=== PATIENT | female | born 2000 | race Two or more races ===

== ENCOUNTER 2021-04-26 21:10 | Emergency (ER) | payer SELFPAY ==
[~2021-04-26] VITALS: Ht 149.9 cm; Wt 45.4 kg
[2021-04-26 21:10] VITALS: BP 124/87
[2021-04-26 22:06] LABS: Urine Bacteria NONE SEEN /hpf (None Seen); Urine Blood 3+ /uL (Negative); Urine WBC 850 /hpf (0 - 5); Urine WBC Clumps PRESENT /hpf (None Seen)
[2021-04-26 22:07] LABS: Urine Specific Gravity 1.033 (1.001-1.035)
== END 2021-04-26 23:35 | disposition left against medical advice (07) ==
LOC: ER 21:10
DX: R10.30 Lower abdominal pain, unspecified (principal); K92.1 Melena; Z53.21 Procedure and treatment not carried out due to patient leaving prior to being seen by health care provider
CPT/HCPCS: 74176; 81001; 81025

== ENCOUNTER → 2023-04-22 | Emergency (ER) | payer MEDICAID, OTHER ==
[~2023-04-22] VITALS: Ht 149.9 cm; Wt 43.6 kg
[2023-04-22 21:06] VITALS: BP 115/86
[2023-04-22 21:22] LABS: Urine Bacteria NONE SEEN /hpf (None Seen); Urine Blood 3+ /uL (Negative); Urine Mucus FEW (None Seen); Urine WBC 54 /hpf (0 - 5)
[2023-04-22 21:23] LABS: Basophils # (auto) 0.1 10 ^3/uL (0-0.2); Basophils % (auto) 0.9 % (0.0-2.0); Eosinophils # (auto) 0.1 10 ^3/uL (0-0.8); Hematocrit 38.3 % (36.0-46.0); Hemoglobin 12.4 g/dL (12.2-16.2); Lymphocytes # (auto) 2.2 10 ^3/uL (0.4-5.4); Mean Corpuscular Hemoglobin 27.3 pg (28.0-32.0); Mean Corpuscular Hgb Conc. 32.4 g/dL (32.0-36.0); Mean Corpuscular Volume 84.5 fL (80.0-100.0); Monocytes # (auto) 0.8 10 ^3/uL (0-1.3); Monocytes % (auto) 9.6 % (0.0-12.0); Neutrophils # (auto) 5.3 10 ^3/uL (1.6-8.6); Neutrophils % (auto) 62.5 % (37.0-80.0); Red Blood Cells 4.53 10^6/uL (4.0-5.20); Red Cell Distribution Width 13.9 % (11.8-14.3); White Blood Cell 8.4 10^3/uL (4.4-10.8)
[2023-04-22 21:43] LABS: Calcium 8.5 mg/dL (8.5-10.1); Potassium 3.4 mmol/L (3.5-5.1)
[2023-04-22 21:46] LABS: BUN/Creatinine Ratio 13.2 (10.0-20.0); Bilirubin, Total 0.3 mg/dL (0.2-1.0); Total Protein 7.3 g/dL (6.4-8.2)
== END | disposition home or self-care (01) ==
LOC: ER 20:47
DX: O02.1 Missed abortion (principal)
CPT/HCPCS: 36415; 76801; 76817; 80053; 81001; 84702; 85025

== ENCOUNTER 2024-10-10 16:37 | Emergency (ER) | payer MEDICAID ==
[~2024-10-10] VITALS: Ht 149.9 cm; Wt 52.5 kg
[2024-10-10 16:44] VITALS: BP 120/80; PULSE 102; RESP 18; O2SAT 100
--- NOTE | 2024-10-10 16:49 | ED.PDOC ---
HPI Comments HPI: Poor Historian. 24-year-old female 27 weeks gestation one miscarriage presents to emergency department for evaluation of 2 hour history of left-sided chest discomfort nonradiating intermittent without any particular alleviating or precipitating factors. She has some associated mild shortness of breath with it. She said she had these symptoms numerous times in the past and has been evaluated by Cardiology two years ago and had an echocardiogram which showed mild leaky valve patient has no symptoms or complaints regarding her today. No vaginal bleeding or abdominal pain. Vitals: BP: 120/80 HR: 103 Temp: 97.8 F RR: 18 SPO2: 100% RA Past Medical History: Mild leaky valve Past Surgical History: Denies Denies any use of drugs or tobacco or alcohol. REVIEW OF SYSTEMS: CONSTITUTIONAL: Denies acute: fever, diaphoresis, chills, generalized weakness. HEAD: Denies acute: headache, photophobia Eyes: Denies acute: Double vision, vision loss, eye pain, eye discharge. EARS: Denies acute: tinnitus, hearing loss, ear discharge, ear pain, THROAT: Denies acute: sore throat, swelling, difficulty swallowing , pain with swallowing, change in voice. NECK: Denies acute: neck pain, neck swelling, stiff neck. HEART: Denies acute : palpitations, LUNGS: Denies acute: wheezing, cough, hemoptysis ABDOMEN: Denies acute: abdominal pain, Nausea, Vomiting, diarrhea, melena , hematemesis, hematochezia SKIN: Denies acute: rash, redness, lesions, itchiness. EXTREMITIES: Denies acute: calf pain, numbness, tingling, weakness, denies pain in extremity. Denies acute: Low back pain. Neuro: Denies acute: focal neurological deficit, motor or sensory focal neurological deficit, tremors, seizure like activity, confusion, dizziness, change in mental status, loss of bowel or bladder function, cauda equina like symptoms. : Denies acute: dysuria, hematuria, flank pain, increase in urinary frequency. PSYCH: Denies acute: hallucination, suicidal ideation, homicidal ideation. FEMALE: Denies acute: abnormal vaginal bleeding, foul odor, unusual discharge. PHYSICAL EXAM: General: no acute distress, awake and alert. Head: normocephalic, atraumatic. Neck: supple, trachea is midline, no swelling. Throat: Normal phonation. Eyes:, no erythema, no purulent discharge, no proptosis, no icterus. Heart: regular rate, regular rhythm, no significant murmur appreciated. Lungs: no apparent respiratory distress, Able to speak in full sentences. No wheezing, no rhonchi, no crackles. No stridors Clear to auscultation bilaterally. Abdomen: non tender to palpation, non distended, soft, no guarding, no rebound, + bowel sounds. Neuro: Awake, Alert, oriented to name, self, situation, follows commands GCS=15. Speech is normal. Skin: no petechia, no purpura, no cyanosis, non-pale, not jaundice. Lower extremities: --no - Pitting edema no deformity, no focal swelling, no calf TTP. Makes eye contact. moves all four extremities. Face: no apparent facial droop. Ambulating in the ED independently. 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 Was a procedure done?: No CP Differential Dx Differential Diagnosis: N/A Differential Diagnosis: Angina, Chest Wall Pain, Cholelithiasis, Costochondritis, Esophageal reflux/spasm, Myocardial Infarction, Pericarditis, Pneumonia, Pulmonary Embolus X-Ray, Labs, Meds, VS Vital Signs Date Time Temp Pulse Resp B/P (MAP) Pulse Ox O2 Delivery O2 Flow Rate FiO2 10/10/24 16:44 102 10/10/24 16:44 97.8 103 18 120/80 (93) 100 Lab Test 10/10/24 18:16 10/10/24 16:45 Range/Units Troponin I High Sensitivity Pending < 3 L </=34 ng/L White Blood Count 9.5 4.4-10.8 10^3/uL Red Blood Count 4.00 4.0-5.20 10^6/uL Hemoglobin 11.5 L 12.2-16.2 g/dL Hematocrit 34.9 L 36.0-46.0 % Mean Corpuscular Volume 87.1 80.0-100.0 fL Mean Corpuscular Hemoglobin 28.8 28.0-32.0 pg Mean Corpuscular Hemoglobin Concent 33.1 32.0-36.0 g/dL Red Cell Distribution Width 13.9 11.8-14.3 % Platelet Count 158 140-450 10^3/uL Mean Platelet Volume 9.8 6.9-10.8 fL Neutrophils (%) (Auto) 74.8 37.0-80.0 % Lymphocytes (%) (Auto) 16.6 10.0-50.0 % Monocytes (%) (Auto) 7.9 0.0-12.0 % Eosinophils (%) (Auto) 0.4 0.0-7.0 % Basophils (%) (Auto) 0.3 0.0-2.0 % Neutrophils # (Auto) 7.1 1.6-8.6 10 ^3/uL Lymphocytes # (Auto) 1.6 0.4-5.4 10 ^3/uL Monocytes # (Auto) 0.8 0-1.3 10 ^3/uL Eosinophils # (Auto) 0 0-0.8 10 ^3/uL Basophils # (Auto) 0 0-0.2 10 ^3/uL Nucleated Red Blood Cells 0.0 % Sodium Level 138 136-145 mmol/L Potassium Level 3.7 3.5-5.1 mmol/L Chloride Level 105 98-107 mmol/L Carbon Dioxide Level 24 20-31 mmol/L Anion Gap 9 5-15 Blood Urea Nitrogen 7 L 9-23 mg/dL Creatinine 0.65 0.550-1.02 mg/dL Glomerular Filtration Rate Calc 124 >90 mL/min BUN/Creatinine Ratio 10.8 10.0-20.0 Serum Glucose 83 74-106 mg/dL Calcium Level 9.8 8.7-10.4 mg/dL Magnesium Level 1.7 1.6-2.6 mg/dL Total Bilirubin 0.2 0.2-1.0 mg/dL Aspartate Amino Transferase (AST) 22 13-40 U/L Alanine Aminotransferase (ALT) 13 7-40 U/L Alkaline Phosphatase 82 46-116 U/L B-Type Natriuretic Peptide 18.89 0-100 pg/mL Total Protein 6.3 5.7-8.2 g/dL Albumin 3.9 3.2-4.8 g/dL Time of 1ST Reevaluation: 19:04 Reevaluation 1ST: Unchanged Patient Education/Counseling: Diagnosis, Treatment Family Education/Counseling: No Family Present Departure 1 Departure Time of Disposition: 19:01 Impression: Primary Impression: Chest pain Additional Impressions: Dyspnea Left against medical advice Disposition: 07 LEFT AGAINST MEDICAL ADVICE Condition: Stable Additional Instructions: You are leaving against medical advice. Please seek medical attention JUAN. Follow up with Cardiology JUAN. Discharged With: Self Critical Care Note Critical Care Time?: No Heart Score Heart Score: Heart Score Response (Comments) Value Age <45 0 Risk Factors 1 or 2 risk factors 1 Total 1 I personally scribed for MAGDALENA WING DO ([email or web address]) on 10/10/24 at 19:08. Electronically submitted by Maren Howell ([facility]). MAGDALENA WING DO Oct 10, 2024 16:49
[2024-10-10 17:07] LABS: Basophils # (auto) 0 10 ^3/uL (0-0.2); Basophils % (auto) 0.3 % (0.0-2.0); Eosinophils # (auto) 0 10 ^3/uL (0-0.8); Eosinophils % (auto) 0.4 % (0.0-7.0); Hematocrit 34.9 % (36.0-46.0); Hemoglobin 11.5 g/dL (12.2-16.2); Lymphocytes # (auto) 1.6 10 ^3/uL (0.4-5.4); Lymphocytes % (auto) 16.6 % (10.0-50.0); Mean Corpuscular Hemoglobin 28.8 pg (28.0-32.0); Mean Corpuscular Hgb Conc. 33.1 g/dL (32.0-36.0); Mean Corpuscular Volume 87.1 fL (80.0-100.0); Monocytes # (auto) 0.8 10 ^3/uL (0-1.3); Monocytes % (auto) 7.9 % (0.0-12.0); Neutrophils # (auto) 7.1 10 ^3/uL (1.6-8.6); Neutrophils % (auto) 74.8 % (37.0-80.0); Platelet Count (auto) 158 10^3/uL (140-450); Red Cell Distribution Width 13.9 % (11.8-14.3); White Blood Cell 9.5 10^3/uL (4.4-10.8)
[2024-10-10 17:31] LABS: Alanine Aminotransferase 13 U/L (7-40); Albumin 3.9 g/dL (3.2-4.8); Alkaline Phosphatase 82 U/L (46-116); Anion Gap 9 (5-15); Aspartate Aminotransferase 22 U/L (13-40); BUN/Creatinine Ratio 10.8 (10.0-20.0); Bilirubin, Total 0.2 mg/dL (0.2-1.0); Blood Urea Nitrogen 7 mg/dL (9-23); Calcium 9.8 mg/dL (8.7-10.4); Carbon Dioxide 24 mmol/L (20-31); Chloride 105 mmol/L (98-107); Glucose 83 mg/dL (74-106); Potassium 3.7 mmol/L (3.5-5.1); Sodium 138 mmol/L (136-145); Total Protein 6.3 g/dL (5.7-8.2)
--- NOTE | 2024-10-11 10:46 | ECG ---
[facility] Test Date: 2024-10-10 Test Time: 16:44:14 Pat Name: OPAL POWELL Department: ER Room: Gender: F Manager Philosophy: CARMEN : 2000 Requested By: MAGDALENA WING Order Number: [id number] Reading MD: Measurements Intervals [place] Rate: 102 P: 83 AL: 123 QRS: 84 QRSD: 73 T: -1 QT: 320 QTc: 417 Interpretive Statements Sinus tachycardia Borderline T wave abnormalities Please click the below link to view image of tracing.
== END 2024-10-10 19:02 | disposition left against medical advice (07) ==
LOC: ER 16:37
DX: O26.892 Other specified pregnancy related conditions, second trimester (principal); R07.89 Other chest pain; R06.02 Shortness of breath; R06.00 Dyspnea, unspecified; Z3A.27 27 weeks gestation of pregnancy; Z79.899 Other long term (current) drug therapy
CPT/HCPCS: 36415; 80053; 83735; 83880; 84484; 85025; 93005

== ENCOUNTER 2024-10-21 18:00 | Observation (INO) | payer MEDICAID ==
[~2024-10-21] VITALS: Ht 149.9 cm; Wt 52.2 kg
--- NOTE | 2024-10-21 20:05 | DVH ---
OB ULTRASOUND, LIMITED CLINICAL INDICATION: Swelling/Contractions TECHNIQUE: Multiple grayscale ultrasound and M-mode images were obtained of the pelvis for evaluation of intrauterine . COMPARISON: None FINDINGS /impression: Cephalic presentation placenta location is anterior heart rate 136 beats per minute current INDIA 14.26 cm. Cervical length 3.24 cm. movement is seen
[2024-10-21 20:08] LABS: Basophils # (auto) 0 10 ^3/uL (0-0.2); Basophils % (auto) 0.3 % (0.0-2.0); Eosinophils # (auto) 0 10 ^3/uL (0-0.8); Eosinophils % (auto) 0.5 % (0.0-7.0); Hematocrit 35.2 % (36.0-46.0); Hemoglobin 11.5 g/dL (12.2-16.2); Lymphocytes # (auto) 1.6 10 ^3/uL (0.4-5.4); Lymphocytes % (auto) 16.7 % (10.0-50.0); Mean Corpuscular Hemoglobin 28.5 pg (28.0-32.0); Mean Corpuscular Hgb Conc. 32.8 g/dL (32.0-36.0); Mean Corpuscular Volume 87.1 fL (80.0-100.0); Monocytes # (auto) 0.7 10 ^3/uL (0-1.3); Monocytes % (auto) 7.1 % (0.0-12.0); Neutrophils % (auto) 75.4 % (37.0-80.0); Platelet Count (auto) 136 10^3/uL (140-450); Red Blood Cells 4.04 10^6/uL (4.0-5.20); Red Cell Distribution Width 13.7 % (11.8-14.3); White Blood Cell 9.3 10^3/uL (4.4-10.8)
[2024-10-21] MEDS: TERBUTALINE SULFATE 1 MG/ML 1ML VIAL SC SCH (20:08)
[2024-10-21 20:27] LABS: INR 0.92 (0.9-1.15); Partial Thromboplastin Time 25.9 SEC (24.5-34.5); Prothrombin Time 9.8 sec (9.3-11.8)
[2024-10-21 20:28] LABS: Alanine Aminotransferase 15 U/L (7-40); Alkaline Phosphatase 89 U/L (46-116); Anion Gap 7 (5-15); Aspartate Aminotransferase 17 U/L (13-40); Calcium 9.9 mg/dL (8.7-10.4); Carbon Dioxide 24 mmol/L (20-31); Chloride 106 mmol/L (98-107); Glucose 104 mg/dL (74-106); Potassium 3.7 mmol/L (3.5-5.1); Sodium 137 mmol/L (136-145); Total Protein 6.7 g/dL (5.7-8.2); Uric Acid 3.6 mg/dL (3.1-7.8)
[2024-10-21 21:01] LABS: BUN/Creatinine Ratio 8.5 (10.0-20.0); Bilirubin, Total 0.3 mg/dL (0.2-1.0); Blood Urea Nitrogen < 5 mg/dL (9-23)
[2024-10-21 22:39] LABS: Protein, Urine 7.1 mg/dL (1-14)
[2024-10-21 22:42] LABS: Creatinine, Urine 49.67 mg/dL (30.0-125.0); Urine Protein/Creatinine Ratio 0.14
[2024-10-22] MEDS ORDERED: ASPI1TAB20 PO (02:16)
[2024-10-22] MEDS ORDERED: NIFE10CA52 PO (02:16)
--- NOTE | 2024-10-22 03:35 | DVHDS2 ---
Physician Discharge Progress N Final Diagnosis: PTL Secondary Diagnosis: ruled out for preeclampsia Problems List: (1) labor in third trimester Operations or Procedures: Operations or Procedures S: 24yo IUP@28.1wks presents to OB triage with c/o swelling in her both her feet and tightening in her lower abdomen. She reports being in [facility] ED last week for RUQ pain. Denies UCs/LOF/VB/MOYA/vision changes/RUQ pain. Endorses +FM. Pt reports hx of preeclampsia with previous . Not taking baby aspirin this . PNC with Dr. Kauffman, uncomplicated thus far. O: VSS, normotensive BLE: No edema, 2+ DTRs NST reactive TOCO: regular UCs initially, 1 dose of SQ terbutaline given then no UCs noted Laboratory Tests Test 10/21/24 19:38 10/21/24 21:24 Range/Units White Blood Count 9.3 4.4-10.8 10^3/uL Red Blood Count 4.04 4.0-5.20 10^6/uL Hemoglobin 11.5 L 12.2-16.2 g/dL Hematocrit 35.2 L 36.0-46.0 % Mean Corpuscular Volume 87.1 80.0-100.0 fL Mean Corpuscular Hemoglobin 28.5 28.0-32.0 pg Mean Corpuscular Hemoglobin Concent 32.8 32.0-36.0 g/dL Red Cell Distribution Width 13.7 11.8-14.3 % Platelet Count 136 L 140-450 10^3/uL Mean Platelet Volume 10.6 6.9-10.8 fL Neutrophils (%) (Auto) 75.4 37.0-80.0 % Lymphocytes (%) (Auto) 16.7 10.0-50.0 % Monocytes (%) (Auto) 7.1 0.0-12.0 % Eosinophils (%) (Auto) 0.5 0.0-7.0 % Basophils (%) (Auto) 0.3 0.0-2.0 % Neutrophils # (Auto) 7.0 1.6-8.6 10 ^3/uL Lymphocytes # (Auto) 1.6 0.4-5.4 10 ^3/uL Monocytes # (Auto) 0.7 0-1.3 10 ^3/uL Eosinophils # (Auto) 0 0-0.8 10 ^3/uL Basophils # (Auto) 0 0-0.2 10 ^3/uL Nucleated Red Blood Cells 0.0 % Prothrombin Time 9.8 9.3-11.8 sec Prothrombin Time INR 0.92 0.9-1.15 Activated Partial Thromboplast Time 25.9 24.5-34.5 SEC Sodium Level 137 136-145 mmol/L Potassium Level 3.7 3.5-5.1 mmol/L Chloride Level 106 98-107 mmol/L Carbon Dioxide Level 24 20-31 mmol/L Anion Gap 7 5-15 Blood Urea Nitrogen < 5 L 9-23 mg/dL Creatinine 0.59 0.550-1.02 mg/dL Glomerular Filtration Rate Calc 127 >90 mL/min BUN/Creatinine Ratio 8.5 L 10.0-20.0 Serum Glucose 104 74-106 mg/dL Uric Acid 3.6 3.1-7.8 mg/dL Calcium Level 9.9 8.7-10.4 mg/dL Total Bilirubin 0.3 0.2-1.0 mg/dL Aspartate Amino Transferase (AST) 17 13-40 U/L Alanine Aminotransferase (ALT) 15 7-40 U/L Alkaline Phosphatase 89 46-116 U/L Total Protein 6.7 5.7-8.2 g/dL Albumin 4.0 3.2-4.8 g/dL Urine Creatinine 49.67 30.0-125.0 mg/dL Urine Protein/Creatinine Ratio 0.14 Urine Total Protein 7.1 1-14 mg/dL A; 24yo IUP@28.1wks PTL Ruled out for preeclampsia P: D/C home Rx sent for baby aspirin. Dr. Perez consulted, agrees with POC. Ordered pt to start taking procardia 10mg q6hrs at home, Rx sent. kick counts and Preeclampsia warning signs reviewed. PTL precautions given and when to return to the hospital. Other Interventions Other Interventions [address] [address] Ph: [phone] DIAGNOSTIC IMAGING Diagnostic Imaging Report : [id number] Signed PATIENT: OPAL POWELL ACCT: [id number] UNIT: [id number] : 2000 LOC: [facility] ROOM / BED: TRIAGE2 / A AGE / SEX: 24 / F ADM STATUS: ADM IN SERVICE 15 ORDERING PHYSICIAN: NEELAM ROWE CNM PROCEDURE(s): OBLTD - OBSTERICAL LIMITED REASON: Swelling/Contractions ORDER NUMBER(s): [id number], ACCESSION NUMBER(s): [id number] OB ULTRASOUND, LIMITED CLINICAL INDICATION: Swelling/Contractions TECHNIQUE: Multiple grayscale ultrasound and M-mode images were obtained of the pelvis for evaluation of intrauterine . COMPARISON: None FINDINGS /impression: Cephalic presentation placenta location is anterior heart rate 136 beats per minute current INDIA 14.26 cm. Cervical length 3.24 cm. movement is seen ATED BY: DALILA LAWRENCE MD DICTATED DATE/TIME: 10/21/242001 SIGNED BY: DALILA LAWRENCE MD SIGNED DATE/TIME: 10/21/242001 CC: Condition on Discharge: Stable Disposition: Home Discharge Instructions: Diet: Regular Activity: Light activity Activity comment: pelvic rest Follow Up/Referral: PLease keep all follow up appointments with your OBGYN. [facility] Medications: see med list Follow Up Care: Specialist: f/u in 1 wk Discharge Statement: "Patient was advised to return to the ER or call 911 if any headaches, dizziness, shortness of breath, chest pain, abdominal pain, bleeding, fevers, or worsening of medical condition. Patient was counseled about treatment plan, medications, possible side effects, patientverbalized understanding. All questions were answered to the best of my ability. This discharge took greater then 30 minutes in planning, reviewing documentation, counseling the patient, and discussing with other team members." NEELAM ROWE CNM Oct 22, 2024 03:35
== END 2024-10-21 23:22 | disposition home or self-care (01) ==
LOC: LDRP 18:00
PROVIDERS: ADMIT Obstetrics & Gynecology; ATTEND Obstetrics & Gynecology
DX: O60.03 Preterm labor without delivery, third trimester (principal); O26.893 Other specified pregnancy related conditions, third trimester; R51.9 Headache, unspecified; Z3A.29 29 weeks gestation of pregnancy; Z79.899 Other long term (current) drug therapy; Z98.890 Other specified postprocedural states
CPT/HCPCS: 36415; 59025; 76815; 80053; 81002; 82570; 84156; 84550; 85025; 85610; 85730; 94760; 96372; G0378; J3105

== ENCOUNTER 2024-10-25 22:40 | Observation (INO) | payer MEDICAID ==
[~2024-10-25 22:40] MED LIST: ASPI1TAB20 PO; NIFE10CA52 PO
--- NOTE | 2024-10-26 07:12 | DVHDS2 ---
Physician Discharge Progress N Final Diagnosis: UTI,ABD PAIN Operations or Procedures: Operations or Procedures NST,SONO Condition on Discharge: Good Disposition: Home Discharge Instructions: Diet: Regular Activity: Light activity Follow Up/Referral: Keep all upcoming appointments Medications: Continue taking prescribed medications as directed Follow Up Care: Specialist: 1W Discharge Statement: "Patient was advised to return to the ER or call 911 if any headaches, dizziness, shortness of breath, chest pain, abdominal pain, bleeding, fevers, or worsening of medical condition. Patient was counseled about treatment plan, medications, possible side effects, patientverbalized understanding. All questions were answered to the best of my ability. This discharge took greater then 30 minutes in planning, reviewing documentation, counseling the patient, and discussing with other team members." ELISHA BOBO DO Oct 26, 2024 07:12
== END 2024-10-26 00:29 | disposition home or self-care (01) ==
LOC: LDRP 22:40
PROVIDERS: ADMIT Obstetrics & Gynecology; ATTEND Obstetrics & Gynecology
DX: O23.42 Unspecified infection of urinary tract in pregnancy, second trimester (principal); N39.0 Urinary tract infection, site not specified; O62.9 Abnormality of forces of labor, unspecified; O26.892 Other specified pregnancy related conditions, second trimester; R30.9 Painful micturition, unspecified; Z3A.28 28 weeks gestation of pregnancy
CPT/HCPCS: 59025; 81002; 94760; G0378

== ENCOUNTER 2024-10-28 19:41 | Observation (INO) | payer MEDICAID ==
[2024-10-28] MEDS ORDERED: NITR-52 PO (21:16)
--- NOTE | 2024-10-29 00:01 | DVHDS2 ---
Physician Discharge Progress N Final Diagnosis: testing for PTL Operations or Procedures: Operations or Procedures 24yo IUP@29.1wks, +FM, denies UCs/LOF/VB/UCs/MOYA/vision changes/RUQ pain. Taking PNV, baby aspirin, procardia for PTL and antibiotics for UTI. VSS, normotensive (Pt was ruled out for preeclampsia on 10/21/24) UA wnl NST reactive (verified by 2 RNs) OB sono WNL CVL 3.46cm kick counts and Preeclampsia warning signs reviewed. PTL precautions given and when to return to the hospital. Dr. Perez consulted, agrees with POC. Condition on Discharge: Stable Disposition: Home Discharge Instructions: Diet: Regular Activity: Light activity Follow Up/Referral: [facility] Medications: Continue taking all prescribed medications Follow Up Care: Specialist: f/u 1 wk Discharge Statement: "Patient was advised to return to the ER or call 911 if any headaches, dizziness, shortness of breath, chest pain, abdominal pain, bleeding, fevers, or worsening of medical condition. Patient was counseled about treatment plan, medications, possible side effects, patientverbalized understanding. All questions were answered to the best of my ability. This discharge took greater then 30 minutes in planning, reviewing documentation, counseling the patient, and discussing with other team members." NEELAM ROWE CNM Oct 29, 2024 00:01
--- NOTE | 2024-10-29 05:52 | DVH ---
LIMITED OB ULTRASOUND > 14 WKS: HISTORY: LABOR TECHNIQUE: Multiple real-time grayscale images of the gravid uterus with duplex Doppler color flow an d M-mode spectral analysis. TRANSDUCER: Transabdominal COMPARISON: US OBSTERICAL LIMITED on DOS: 10/21/24 FINDINGS/IMPRESSION: heart rate 171 beats per minute INDIA 17.9 cm Cervix closed and measures 3.5 cm Cephalic Presentation AnteriorPlacenta without previa or abruption.
== END 2024-10-28 21:35 | disposition home or self-care (01) ==
LOC: LDRP 19:41
PROVIDERS: ADMIT Obstetrics & Gynecology; ATTEND Obstetrics & Gynecology
DX: O60.03 Preterm labor without delivery, third trimester (principal); Z3A.29 29 weeks gestation of pregnancy; Z79.899 Other long term (current) drug therapy
CPT/HCPCS: 59025; 81002; 94760; G0378; 76815

== ENCOUNTER 2024-11-05 11:01 | Observation (INO) | payer MEDICAID ==
[~2024-11-05 11:01] MED LIST changes: +NITR-52 PO
--- NOTE | 2024-11-05 11:50 | DVH ---
LIMITED OB ULTRASOUND > 14 WKS: HISTORY: labor TECHNIQUE: Multiple real-time grayscale images of the gravid uterus with duplex Doppler color flow an d M-mode spectral analysis. COMPARISON: US OBSTERICAL LIMITED on DOS: 10/28/24, US OBSTERICAL LIMITED on DOS: 10/21/24 FINDINGS: heart rate measures 154 beats per minute. Cephalic position. Placenta is anterior with no evid ence for previa or abruption at this time. Amniotic fluid index is 14.5. Cervix appears closed. Cervi erik length measures 3.4 cm. IMPRESSION: Single living intrauterine as described above.
--- NOTE | 2024-11-05 12:31 | DVHDS2 ---
Physician Discharge Progress N Final Diagnosis: Threatened labor IUP 30+ wk Secondary Diagnosis: Encounter for surveillance Operations or Procedures: Operations or Procedures NST OB ultrasound with cervial length and INDIA (all WNL) Commentary: Commentary No contractions Cervix closed on US with NORMAL cervical length, not in labor Condition on Discharge: Stable Disposition: Home Discharge Instructions: Diet: Regular Activity: No Restrictions, As Tolerated Follow Up/Referral: as scheduled. Medications: N/A Follow Up Care: Discharge Statement: "Patient was advised to return to the ER or call 911 if any headaches, dizziness, shortness of breath, chest pain, abdominal pain, bleeding, fevers, or worsening of medical condition. Patient was counseled about treatment plan, medications, possible side effects, patientverbalized understanding. All questions were answered to the best of my ability. This discharge took greater then 30 minutes in planning, reviewing documentation, counseling the patient, and discussing with other team members." SENAIT BRAUN DO Nov 05, 2024 12:31
== END 2024-11-05 12:26 | disposition home or self-care (01) ==
LOC: LDRP 11:01
PROVIDERS: ADMIT Obstetrics & Gynecology; ATTEND Obstetrics & Gynecology
DX: O47.03 False labor before 37 completed weeks of gestation, third trimester (principal); Z3A.30 30 weeks gestation of pregnancy; Z79.899 Other long term (current) drug therapy; Z98.890 Other specified postprocedural states
CPT/HCPCS: 59025; 76815; 81002; 94760; G0378

== ENCOUNTER 2024-12-13 09:40 | Observation (INO) | payer MEDICAID ==
[~2024-12-13] VITALS: Ht 149.9 cm; Wt 54.4 kg
[2024-12-13 10:40] LABS: Vaginal Trichomonas Not Present
[2024-12-13 10:40] LABS: Fern Testing Positive
[2024-12-13 10:41] LABS: Vaginal Bacteria Moderate; Vaginal Clue Cells None Seen; Vaginal Epithelial Cells Moderate
--- NOTE | 2024-12-13 10:54 | DVH ---
BIOPHYSICAL PROFILE HISTORY: Leaking Fluid TECHNIQUE: Multiple transabdominal real-time grayscale sonographic images through the gravid uterus of the fetus with duplex Doppler color flow and M-mode spectral analysis FINDINGS: BIOPHYSICAL PROFILE: breathing score: 2 movement score: 2 tone score: 2 Quantitative INDIA score: 2 (INDIA: 13 Cm.) Total score: 8 The cervix is closed measuring 4 cm Single live fetus in cephalic presentation. heart rate 134 beats per minute. Grade II placenta without previa or abruption IMPRESSION: Biophysical profile score: 8/8
--- NOTE | 2024-12-13 12:37 | DVHDS2 ---
Physician Discharge Progress N Final Diagnosis: SROM at 35.3wks Operations or Procedures: Operations or Procedures S: 24yo IUP@35.5wks presents to OB triage with c/o LOF at 1900 on 12/12/24. clear fluid. Denies VB/MOYA/vision changes/RUQ pain. Endorses +FM. PNC with Dr. Kauffman, uncomplicated. O: VSS, afebrile EFM: FHR 140s, moderate variability, +accels, -decels (last 27 minutes) TOCO: irregular UCs SSE by RN: positive nitrazine and pooling SVE by RN: 1/thick/-2, vertex Laboratory Tests Test 12/13/24 09:52 12/13/24 10:26 Range/Units Vaginal WBC (Wet Prep) Few Vaginal RBC (Wet Prep) Rare Vaginal Epithelial Cells (Wet Prep) Moderate Vaginal Bacteria (Wet Prep) Moderate Vaginal Trichomonas (Wet Prep) Not present Vaginal Yeast (Wet Prep) None seen Vaginal Clue Cells (Wet Prep) None seen Amniotic Fluid Ferning Test Positive A: 24yo IUP@35.5wks NST reactive SROM, clear fluid P: Admit to L&D for SROM OB complete ordered Pt left AMA because she wants to deliver at [facility] since they have NICU and [facility] does not. Dr. Perez made aware. Other Interventions Other Interventions [place] [address] Ph: [phone] DIAGNOSTIC IMAGING Diagnostic Imaging Report : [id number] Signed PATIENT: OPAL POWELL ACCT: [id number] UNIT: [id number] : 2000 LOC: [facility] ROOM / BED: [facility] / AGE / SEX: 24 / F ADM STATUS: ADM IN SERVICE 0952 ORDERING PHYSICIAN: NEELAM ROWE CNM PROCEDURE(s): BPP - BIOPHYSICAL PROFILE REASON: Leaking Fluid ORDER NUMBER(s): [id number], ACCESSION NUMBER(s): [id number] BIOPHYSICAL PROFILE HISTORY: Leaking Fluid TECHNIQUE: Multiple transabdominal real-time grayscale sonographic images through the gravid uterus of the fetus with duplex Doppler color flow and M-mode spectral analysis FINDINGS: BIOPHYSICAL PROFILE: breathing score: 2 movement score: 2 tone score: 2 Quantitative INDIA score: 2 (INDIA: 13 Cm.) Total score: 8 The cervix is closed measuring 4 cm Single live fetus in cephalic presentation. heart rate 134 beats per minute. Grade II placenta without previa or abruption IMPRESSION: Biophysical profile score: 8/8 ATED BY: RENE ERICKSON MD DICTATED DATE/TIME: 12/13/24 105 SIGNED BY: RENE ERICKSON MD SIGNED DATE/TIME: 12/13/24 105 CC: Condition on Discharge: Higher Level of Care Disposition: AMA Discharge Instructions: Diet: Regular Activity: No Restrictions, As Tolerated Medications: see med list Follow Up Care: Specialist: Pt left AMA because she wants to deliver at [facility] since they have NICU and [facility] does not. Discharge Statement: "Patient was advised to return to the ER or call 911 if any headaches, dizziness, shortness of breath, chest pain, abdominal pain, bleeding, fevers, or worsening of medical condition. Patient was counseled about treatment plan, medications, possible side effects, patientverbalized understanding. All questions were answered to the best of my ability. This discharge took greater then 30 minutes in planning, reviewing documentation, counseling the patient, and discussing with other team members." Visit Coding OBGYN Date of Service: Dec 13, 2024 Billing Provider: NEELAM ROWE CNM APPLICATIONS PROGRAMMER Common Visit Codes: 05751-MSH/OBS SAME DATE (HIGH) APPLICATIONS PROGRAMMER Procedure Codes: 93425-60- NON-STRESS TEST NEELAM ROWE CNM Dec 13, 2024 12:37
== END 2024-12-13 11:34 | disposition home or self-care (01) ==
LOC: LDRP 09:40
PROVIDERS: ADMIT Obstetrics & Gynecology; ATTEND Obstetrics & Gynecology
DX: O42.913 Preterm premature rupture of membranes, unspecified as to length of time between rupture and onset of labor, third trimester (principal); Z98.890 Other specified postprocedural states; Z79.899 Other long term (current) drug therapy; Z3A.35 35 weeks gestation of pregnancy
CPT/HCPCS: 76818; 87210; G0378; Q0114; 59025; 81002; 94762

== ENCOUNTER 2024-12-13 17:55 | Observation (INO) | payer MEDICAID ==
--- NOTE | 2024-12-13 19:12 | DVH ---
LIMITED OB ULTRASOUND > 14 WKS: HISTORY: Leaking of fluid TECHNIQUE: Multiple real-time grayscale images of the gravid uterus with duplex Doppler color flow an d M-mode spectral analysis. TRANSDUCER: Transabdominal FINDINGS: IUP single live fetus at 35 weeks 5 days based on composite averages of the BPD, head circumference, abdominal circumference and femur length heart rate 141 beats per minute INDIA 12.7 cm Cervix 3.98 cm long and appears closed Cephalic Presentation Anterior Grade 2 Placenta without previa or abruption. IMPRESSION: 1. IUP single live fetus at 35 weeks 5 days AUA corresponding to an MARY of 01/12/2025 2. FHR: 141 beats per minute 3. INDIA: 11.77 cm; MVP: 4 cm; on November 05, 2024 INDIA was 14.45 cm with an MVP of 5.08 cm
--- NOTE | 2024-12-15 15:37 | DVHDS2 ---
Physician Discharge Progress N Final Diagnosis: 35wks rom rule out Operations or Procedures: Operations or Procedures nst 35wks,sono Condition on Discharge: Undetermined Disposition: AMA Discharge Instructions: Diet: See Comment Activity: Medications: na Follow Up Care: Specialist: left ama Discharge Statement: "Patient was advised to return to the ER or call 911 if any headaches, dizziness, shortness of breath, chest pain, abdominal pain, bleeding, fevers, or worsening of medical condition. Patient was counseled about treatment plan, medications, possible side effects, patientverbalized understanding. All questions were answered to the best of my ability. This discharge took greater then 30 minutes in planning, reviewing documentation, counseling the patient, and discussing with other team members." Visit Coding OBGYN Date of Service: Dec 13, 2024 Billing Provider: ELISHA BOBO DO COMMUNICATION ASSISTANT Common Visit Codes: 25620-QAL/OBS DISCH DAY >30MIN COMMUNICATION ASSISTANT Procedure Codes: 58940-25- NON-STRESS TEST ELISHA BOBO DO Dec 15, 2024 15:37
== END 2024-12-13 19:48 | disposition left against medical advice (07) ==
LOC: LDRP 17:55
PROVIDERS: ADMIT Obstetrics & Gynecology; ATTEND Obstetrics & Gynecology
DX: O42.913 Preterm premature rupture of membranes, unspecified as to length of time between rupture and onset of labor, third trimester (principal); Z98.890 Other specified postprocedural states; Z79.899 Other long term (current) drug therapy; Z3A.35 35 weeks gestation of pregnancy
CPT/HCPCS: 59025; 76815; 81002; G0378

== ENCOUNTER 2024-12-26 22:43 | Observation (INO) | payer MEDICAID ==
--- NOTE | 2024-12-27 03:46 | DVHDS2 ---
Physician Discharge Progress N Final Diagnosis: IUP 37 wk, false labor Operations or Procedures: Operations or Procedures NST Condition on Discharge: Stable Disposition: Home Discharge Instructions: Diet: Regular Activity: No Restrictions, As Tolerated Follow Up/Referral: as scheduled Medications: N/A Follow Up Care: Discharge Statement: "Patient was advised to return to the ER or call 911 if any headaches, dizziness, shortness of breath, chest pain, abdominal pain, bleeding, fevers, or worsening of medical condition. Patient was counseled about treatment plan, medications, possible side effects, patientverbalized understanding. All questions were answered to the best of my ability. This discharge took greater then 30 minutes in planning, reviewing documentation, counseling the patient, and discussing with other team members." Visit Coding OBGYN Date of Service: Dec 27, 2024 Billing Provider: SENAIT BRAUN DO SUPERINTENDENT GENERAL Common Visit Codes: 85334-KAP/OBS SAME DATE (MOD) SUPERINTENDENT GENERAL Procedure Codes: 93508-61- NON-STRESS TEST SENAIT BRAUN DO Dec 27, 2024 03:46
== END 2024-12-27 | disposition home or self-care (01) ==
LOC: LDRP 22:43
PROVIDERS: ADMIT Obstetrics & Gynecology; ATTEND Obstetrics & Gynecology
DX: O47.03 False labor before 37 completed weeks of gestation, third trimester (principal); Z3A.37 37 weeks gestation of pregnancy; Z79.899 Other long term (current) drug therapy
CPT/HCPCS: 59025; 81002; G0378